=== PATIENT | female | born 1960 | race Caucasian/White ===

== ENCOUNTER 2019-03-24 09:16 | Inpatient (IN) | payer MEDICARE ==
[2019-03-24] VITALS (44 sets, daily range): BP systolic 103–153; BP diastolic 20–94
[~2019-03-24] VITALS: Ht 162.6 cm; Wt 81.8 kg
[2019-03-24 10:03] LABS: BASOPHILS % 0.8 % (0.0-2.0); EOSINOPHILS % 0.9 % (0.0-5.0); HEMATOCRIT. 38.4 % (36.0-48.0); HEMOGLOBIN. 12.7 g/dL (12.0-16.0); LYMPHOCYTES % 20.9 % (20.0-50.0); MEAN CORPUSCULAR HEMOGLOBIN 27.7 pg (28.0-32.0); MEAN PLATELET VOLUME 8.1 fl (7.4-10.4); MONOCYTES % 4.3 % (2.0-8.0); NEUTROPHILS % 73.1 % (40.0-76.0); PLATELET 324 x1000/uL (130-400); RED BLOOD CELL COUNT 4.57 mill/uL (4.2-5.4); RED CELL DISTRIBUTION WIDTH 15.2 % (11.6-14.6)
[2019-03-24 10:08] LABS: CHLORIDE 105 mEq/L (98-107)
[2019-03-24 10:12] LABS: ETHANOL BLOOD < 10 mg/dL
[2019-03-24] MEDS ORDERED: NICARDIPINE 40MG/200ML PREMIX 200 ML IV ONE (10:29)
[2019-03-24] MEDS ORDERED: DEXAMETHASONE 10 MG/ML VIAL IV ONE (10:30)
[2019-03-24] MEDS ORDERED: MANNITOL 20% (20GM/100ML) BAG 500ML PREMIX IV ONE (10:30)
[2019-03-24] MEDS ORDERED: MORPHINE SULFATE 2 MG/ML CPJ (NOT FOR IM USE) IV PRN (10:30)
[2019-03-24] MEDS ORDERED: NICARDIPINE 100 MG in SODIUM CHLORIDE 0.9% 60 ML IV PRN (10:30)
[2019-03-24] MEDS ORDERED: LEVETIRACETAM 1000MG/100ML 100 ML IV ONE (10:30)
[2019-03-24] MEDS ORDERED: MANNITOL 20% 500 ML IV NR (11:00)
[2019-03-24] MEDS ORDERED: IOHEXOL-350 100 ML BOTTLE ONE (11:57)
[2019-03-24 12:03] LABS: CLARITY URINE CLEAR (CLEAR); COLOR URINE YELLOW (YELLOW); KETONES URINE NEGATIVE (NEGATIVE); LEUKOCYTE ESTERASE URINE NEGATIVE (NEGATIVE); NITRITE URINE NEGATIVE (NEGATIVE); OCCULT BLOOD URINE NEGATIVE (NEGATIVE); PROTEIN URINE NEGATIVE (NEGATIVE); SPECIFIC GRAVITY URINE 1.022 (1.005-1.030); UROBILINOGEN URINE 0.2 E.U./dL (0.2-1.0)
[2019-03-24] MEDS: NICARDIPINE 100 MG in SODIUM CHLORIDE 0.9% 60 ML IV PRN ×2 (12:04→18:45)
[2019-03-24 12:11] LABS: *AMPHETAMINES SCREEN URINE NEGATIVE (NEGATIVE); *BARBITURATES SCREEN URINE NEGATIVE (NEGATIVE); *BENZODIAZEPINES SCREEN URINE NEGATIVE (NEGATIVE); *COCAINE SCREEN URINE NEGATIVE (NEGATIVE); METHADONE URINE SCREEN NEGATIVE (NEGATIVE); OPIATES URINE SCREEN NEGATIVE (NEGATIVE)
[2019-03-24 12:12] LABS: CANNABINOID URINE SCREEN NEGATIVE (NEGATIVE); PHENCYCLIDINE URINE SCREEN NEGATIVE (NEGATIVE)
[2019-03-24 12:41] LABS: PROTHROMBIN TIME 10.2 sec (9.6-11.0)
[2019-03-24] MEDS: BLOOD SUGAR DIAGNOSTIC STRIP TEST SCH ×3 (13:00→20:41)
[2019-03-24] MEDS ORDERED: ONDANSETRON HCL 4MG/2ML INJ IV PRN (13:00)
[2019-03-24] MEDS ORDERED: ACETAMINOPHEN 650MG SUPP PR PRN (13:00)
[2019-03-24] MEDS ORDERED: DEXTROSE 50% WATER 50ML SYRINGE IV PRN (13:00)
[2019-03-24] MEDS ORDERED: IPRATROPIUM/ALBUTEROL 0.5-3(2.5)MG/3ML NEB NEB PRN (13:00)
[2019-03-24] MEDS: INSULIN LISPRO 100 UNITS/ML SUBCUT SCH ×3 (13:20→20:49)
[2019-03-24 14:13] LABS: BG BASE EXCESS 0.3 mmol/L (-2.0-2.0); BG DEOXYHEMOGLOBIN 7.2 % (0.0-5.0); BG FRACTION INSPIRED OXYGEN 21; BG HCO3 ACT 24.8 mmol/L (22.0-26.0); BG METHEMOGLOBIN 0.1 % (0.0-1.5); BG OXYGEN SATURATION 92.7 % (92.0-98.5); BG OXYHEMOGLOBIN 91.7 % (94.0-97.0); BG PCO2 39.8 mmHg (35.0-45.0); BG PH 7.413 (7.350-7.450); BG PO2 62.4 mmHg (75.0-100.0); BG SAMPLE SITE RIGHT RADIAL; BG TOTAL HEMOGLOBIN 14.4 g/dL (12.0-18.0); BG VENT MODE ROOM AIR
[2019-03-24] MEDS: FAMOTIDINE 20MG/2ML VIAL IV SCH (14:55)
[2019-03-24] MEDS: DEXT 5%/LACTATED RINGERS 1,000 ML IV SCH (14:56)
[2019-03-24 15:59] LABS: CREATINE KINASE 99 IU/L (26-192)
[2019-03-24 16:00] LABS: CREATINE KINASE MB FRACTION < 1.0 ng/mL (0.5-3.6)
[2019-03-24] MEDS: DEXAMETHASONE 4MG/ML 1ML VIAL IV SCH (17:50)
[2019-03-24] MEDS: LEVETIRACETAM 500MG PREMIX 100 ML IV SCH (20:48)
[2019-03-25] VITALS (95 sets, daily range): BP systolic 89–148; BP diastolic 19–86
[2019-03-25] MEDS: DEXAMETHASONE 4MG/ML 1ML VIAL IV SCH ×4 (00:04→17:42)
[2019-03-25 00:17] LABS: CREATINE KINASE 65 IU/L (26-192)
[2019-03-25 00:18] LABS: CREATINE KINASE MB FRACTION < 1.0 ng/mL (0.5-3.6)
[2019-03-25] MEDS: BLOOD SUGAR DIAGNOSTIC STRIP TEST SCH ×4 (05:53→20:35)
[2019-03-25] MEDS: INSULIN LISPRO 100 UNITS/ML SUBCUT SCH ×4 (06:08→20:40)
[2019-03-25 06:56] LABS: BASOPHILS % 0.3 % (0.0-2.0); HEMATOCRIT. 38.9 % (36.0-48.0); HEMOGLOBIN. 12.7 g/dL (12.0-16.0); LYMPHOCYTES % 15.5 % (20.0-50.0); MEAN CORPUSCULAR HEMOGLOBIN 27.7 pg (28.0-32.0); MEAN CORPUSCULAR VOLUME 84.6 fL (81.0-99.0); MEAN PLATELET VOLUME 8.5 fl (7.4-10.4); MONOCYTES % 1.6 % (2.0-8.0); NEUTROPHILS % 82.6 % (40.0-76.0); PLATELET 384 x1000/uL (130-400); RED BLOOD CELL COUNT 4.59 mill/uL (4.2-5.4); RED CELL DISTRIBUTION WIDTH 15.4 % (11.6-14.6)
[2019-03-25 07:23] LABS: CHLORIDE 111 mEq/L (98-107)
[2019-03-25 07:33] LABS: LDL CHOLESTEROL 95 mg/dL (5-100)
[2019-03-25 07:35] LABS: HDL CHOLESTEROL 61 mg/dL (40-59)
[2019-03-25] MEDS: LEVETIRACETAM 500MG PREMIX 100 ML IV SCH ×2 (08:25→20:39)
[2019-03-25] MEDS: FAMOTIDINE 20MG/2ML VIAL IV SCH (08:25)
[2019-03-25] MEDS: DEXT 5%/LACTATED RINGERS 1,000 ML IV SCH ×2 (12:02→23:09)
[2019-03-25] MEDS ORDERED: DIGOXIN 500MCG/2ML AMP IV NR (16:45)
[2019-03-25] MEDS ORDERED: DILTIAZEM HCL 5MG/ML 5ML VIAL IV NR (17:15)
[2019-03-25] MEDS ORDERED: DILTIAZEM HCL 125 MG in DEXT 5% WATER 100 ML IV PRN ×4 (17:45)
[2019-03-26] VITALS (70 sets, daily range): BP systolic 98–180; BP diastolic 48–115
[2019-03-26 04:58] LABS: HEMATOCRIT 35.6 % (36.0-48.0); HEMOGLOBIN 11.4 g/dL (12.0-16.0); MEAN CORPUSCULAR HEMOGLOBIN 27.3 pg (28.0-32.0); PLATELET 336 x1000/uL (130-400); RED BLOOD CELL COUNT 4.19 mill/uL (4.2-5.4)
[2019-03-26 05:02] LABS: CHLORIDE 112 mEq/L (98-107)
[2019-03-26] MEDS: BLOOD SUGAR DIAGNOSTIC STRIP TEST SCH ×4 (05:55→21:13)
[2019-03-26] MEDS: DEXAMETHASONE 4MG/ML 1ML VIAL IV SCH ×3 (06:02→21:13)
[2019-03-26] MEDS: INSULIN LISPRO 100 UNITS/ML SUBCUT SCH ×4 (06:03→21:19)
[2019-03-26] MEDS: LEVETIRACETAM 500MG PREMIX 100 ML IV SCH ×2 (08:42→21:13)
[2019-03-26] MEDS: FAMOTIDINE 20MG/2ML VIAL IV SCH (08:42)
[2019-03-26] MEDS: DEXT 5%/LACTATED RINGERS 1,000 ML IV SCH ×2 (09:09→17:49)
[2019-03-26] MEDS ORDERED: SODIUM CHLORIDE 0.9% 500 ML IV ONE (11:00)
[2019-03-26] MEDS ORDERED: DILTIAZEM HCL 30MG TABLET PO SCH (14:00)
[2019-03-26] MEDS: HYDRALAZINE 20MG/ML VIAL IV PRN (18:13)
[2019-03-27] VITALS (44 sets, daily range): BP systolic 95–182; BP diastolic 16–118
[2019-03-27 05:15] LABS: HEMATOCRIT 31.6 % (36.0-48.0); HEMOGLOBIN 10.3 g/dL (12.0-16.0); MEAN CORPUSCULAR HEMOGLOBIN 27.6 pg (28.0-32.0); MEAN CORPUSCULAR VOLUME 84.9 fL (81.0-99.0); PLATELET 256 x1000/uL (130-400); RED BLOOD CELL COUNT 3.72 mill/uL (4.2-5.4); RED CELL DISTRIBUTION WIDTH 15.4 % (11.6-14.6)
[2019-03-27] MEDS: DEXAMETHASONE 4MG/ML 1ML VIAL IV SCH ×2 (05:29→12:57)
[2019-03-27] MEDS: DEXT 5%/LACTATED RINGERS 1,000 ML IV SCH (05:29)
[2019-03-27] MEDS: INSULIN LISPRO 100 UNITS/ML SUBCUT SCH ×4 (06:23→20:26)
[2019-03-27] MEDS: BLOOD SUGAR DIAGNOSTIC STRIP TEST SCH ×4 (06:31→20:26)
[2019-03-27] MEDS: HYDRALAZINE 20MG/ML VIAL IV PRN ×2 (07:05→12:57)
[2019-03-27] MEDS: LEVETIRACETAM 500MG PREMIX 100 ML IV SCH ×2 (08:50→20:26)
[2019-03-27] MEDS: FAMOTIDINE 20MG/2ML VIAL IV SCH (08:50)
[2019-03-27] MEDS ORDERED: DILTIAZEM HCL 30MG TABLET PO SCH (09:00)
[2019-03-27 10:48] LABS: CHLORIDE 111 mEq/L (98-107)
[2019-03-27] MEDS ORDERED: DEXAMETHASONE 4MG/ML 1ML VIAL IV SCH (15:00)
[2019-03-27] MEDS ORDERED: DILTIAZEM HCL 30MG TABLET PO ONE (15:00)
[2019-03-27] MEDS ORDERED: DILTIAZEM HCL 30MG TABLET PO NR (15:14)
[2019-03-27] MEDS: AMLODIPINE 5MG TABLET PO SCH (15:36)
[2019-03-27 16:38] LABS: HEMATOCRIT 38.4 % (36.0-48.0); HEMOGLOBIN 12.6 g/dL (12.0-16.0); MEAN CORPUSCULAR HEMOGLOBIN 27.7 pg (28.0-32.0); MEAN CORPUSCULAR VOLUME 84.2 fL (81.0-99.0); PLATELET 327 x1000/uL (130-400); RED BLOOD CELL COUNT 4.56 mill/uL (4.2-5.4); RED CELL DISTRIBUTION WIDTH 15.5 % (11.6-14.6)
[2019-03-27] MEDS: CLONIDINE 0.1MG TABLET PO PRN (20:27)
[2019-03-27] MEDS: DILTIAZEM HCL 30MG TABLET PO SCH (22:03)
[2019-03-28] VITALS (37 sets, daily range): BP systolic 104–180; BP diastolic 41–120
[2019-03-28 05:45] LABS: HEMATOCRIT 38.9 % (36.0-48.0); HEMOGLOBIN 12.5 g/dL (12.0-16.0); MEAN CORPUSCULAR HEMOGLOBIN 27.2 pg (28.0-32.0); MEAN CORPUSCULAR VOLUME 84.4 fL (81.0-99.0); PLATELET 310 x1000/uL (130-400); RED BLOOD CELL COUNT 4.61 mill/uL (4.2-5.4); RED CELL DISTRIBUTION WIDTH 15.4 % (11.6-14.6)
[2019-03-28 06:02] LABS: CHLORIDE 108 mEq/L (98-107)
[2019-03-28] MEDS: DILTIAZEM HCL 30MG TABLET PO SCH ×2 (06:07→14:12)
[2019-03-28] MEDS: INSULIN LISPRO 100 UNITS/ML SUBCUT SCH ×3 (06:12→17:00)
[2019-03-28] MEDS: BLOOD SUGAR DIAGNOSTIC STRIP TEST SCH ×3 (06:12→16:30)
[2019-03-28] MEDS ORDERED: FAMOTIDINE 20MG TABLET PO SCH (09:00)
[2019-03-28] MEDS: LEVETIRACETAM 500MG PREMIX 100 ML IV SCH (09:53)
[2019-03-28] MEDS: AMLODIPINE 5MG TABLET PO SCH (09:53)
[2019-03-28] MEDS: CLONIDINE 0.1MG TABLET PO PRN (09:54)
== END 2019-03-28 21:00 | disposition home health service (06) | DRG 44 ==
LOC: ER 09:16 → MICUSO 11:37 → EDBEDREQ 11:40 → EDBEDREQTM 11:40 → SUPCPDRO 11:51 → ENRESERV 13:01
PROVIDERS: ADMIT Internal Medicine; ATTEND Internal Medicine
PROC: 02HV33Z Insertion of Infusion Device into Superior Vena Cava, Percutaneous Approach (ICD-10-PCS; principal; 2019-03-25)
PROC: B548ZZA Ultrasonography of Superior Vena Cava, Guidance (ICD-10-PCS; 2019-03-25)
DX: I61.0 Nontraumatic intracerebral hemorrhage in hemisphere, subcortical (principal); I50.33 Acute on chronic diastolic (congestive) heart failure; G81.91 Hemiplegia, unspecified affecting right dominant side; E11.65 Type 2 diabetes mellitus with hyperglycemia; I48.91 Unspecified atrial fibrillation; R47.01 Aphasia; E78.5 Hyperlipidemia, unspecified; I16.1 Hypertensive emergency; E78.00 Pure hypercholesterolemia, unspecified; I11.0 Hypertensive heart disease with heart failure; Z87.828 Personal history of other (healed) physical injury and trauma; Z85.42 Personal history of malignant neoplasm of other parts of uterus; Z79.899 Other long term (current) drug therapy
CPT/HCPCS: 36415; 36600; 70496; 70551; 71045; 76937; 80048; 80053; 80061; 80305; 80320; 81003; 82375; 82550; 82553; 82805; 82962; 83036; 84145; 84439; 84443; 84484; 85025; 85027; 86850; 86900; 92610; 93005; 93306; 93970; 96365; 96368; 96375; 97110; 97162; 97530; 99291; A6261; C1725; J0360; J1100; J1815; J1953; J2270; J3490; J7040; J7050; J7060; J7121; Q9967; A4315; G0480